=== PATIENT | male | born 1940 | race Caucasian/White ===

== ENCOUNTER 2017-04-04 17:59 | Emergency (ER) | payer BC ==
[~2017-04-04] VITALS: Ht 177.8 cm; Wt 115.9 kg
[~2017-04-04 17:59] MED LIST: ALEVE220 MG PO; ALLOPURINOL300 MG PO; ASPIRIN 32325 MG/TAB PO; ASPIRIN 81M81 MG/TA2 PO; CALCIUM + D 6001 TA1 PO; CALCIUM/VITAMIN1 CAP PO; COREG6.25 MG PO; CRESTOR20 MG PO; CRESTOR40 MG PO; FISH OIL1000 MG PO; GAS RELIEF125 MG PO; HYDROCODONE/APAP PO; LISINOPRIL40 MG PO; LOPRESSOR50 MG PO; MULTIPLE VITAMI1 CAP PO; NITROSTAT0.4 MG/TAB SL; NORCO PO; PERCOCET 325 MG1 TA2 PO; PLAVIX 75MG TAB75 MG PO; PROTONIX 40MG T40 MG PO; TOPROL XL100 MG PO; TYLENOL EXTRA500 M1 PO; ULTRAM 50MG TAB50 MG PO; VITAMIN D32000 IU PO; ZOCOR80 MG PO
[2017-04-04 18:05] VITALS: BP 132/67; TEMP 97
[2017-04-04] MEDS ORDERED: PROSCAR 5MG5 MG PO (19:10)
[2017-04-04] MEDS ORDERED: CLINDAMYCIN150 MG PO (20:49)
[2017-04-04 20:55] VITALS: PULSE 76
== END 2017-04-04 21:05 | disposition home or self-care (01) ==
LOC: COL.ER 17:59
DX: S61.412A Laceration without foreign body of left hand, initial encounter (principal); I10 Essential (primary) hypertension; I25.2 Old myocardial infarction; M19.90 Unspecified osteoarthritis, unspecified site; Z23 Encounter for immunization; Z90.49 Acquired absence of other specified parts of digestive tract; Z98.890 Other specified postprocedural states; W29.0XXA Contact with powered kitchen appliance, initial encounter; Y92.009 Unspecified place in unspecified non-institutional (private) residence as the place of occurrence of the external cause

== ENCOUNTER 2019-09-22 17:25 | Emergency (ER) | payer BC ==
[~2019-09-22] VITALS: Ht 177.8 cm; Wt 106.8 kg
[~2019-09-22 17:25] MED LIST changes: +CLINDAMYCIN150 MG PO; +PROSCAR 5MG5 MG PO
[2019-09-22 17:34] VITALS: BP 173/74; TEMP 98.4
[2019-09-22 19:00] VITALS: PULSE 68
== END 2019-09-22 19:00 | disposition home or self-care (01) ==
LOC: COL.ER 17:25
DX: S70.01XA Contusion of right hip, initial encounter (principal); I25.10 Atherosclerotic heart disease of native coronary artery without angina pectoris; I10 Essential (primary) hypertension; E78.5 Hyperlipidemia, unspecified; Z79.82 Long term (current) use of aspirin; W01.0XXA Fall on same level from slipping, tripping and stumbling without subsequent striking against object, initial encounter; Y92.009 Unspecified place in unspecified non-institutional (private) residence as the place of occurrence of the external cause

== ENCOUNTER 2020-07-24 13:31 | Inpatient (IN) | payer BC, MEDICARE ==
[~2020-07-24] VITALS: Ht 177.8 cm; Wt 110.5 kg
[2020-07-24 15:17] VITALS: BP 134/71; PULSE 57; TEMP 98.1
[2020-07-24 16:42] LABS: BASO % 0.2 % (0.0-2.0); EOS % 0.5 % (0-4.0); GRAN # 5.7 (1.4-6.5); GRAN % 70.2 % (42.2-75.2); HEMATOCRIT 43.1 % (42.0-52.0); HEMOGLOBIN 14.2 g/dl (13.5-18.0); LYMPH # 1.5 (1.2-3.4); LYMPH % 18.8 % (20.0-51.0); MEAN CELL VOLUME 95 fl (80.0-100.0); MEAN CORPUSCULAR HEMOGLOBIN 31 pg (27.0-31.0); MEAN CORPUSCULAR HGB CONC 33 g/dl (33.0-37.0); MEAN PLATELET VOLUME 9.4 fl (7.4-10.4); MONO # 0.8 (0.1-0.6); MONO % 9.9 % (1.7-9.3); PLATELET COUNT 216 K/mm3 (130-400); RED BLOOD COUNT 4.56 M/mm3 (4.20-5.60); REDCELL DISTRIBUTION WIDTH-CV 13.4 % (11.5-14.5)
[2020-07-24 16:43] LABS: PROTHROMBIN TIME 11.1 SECONDS (9.7-12.8)
[2020-07-24 16:46] LABS: PARTIAL THROMBOPLASTIN TIME 34.3 SECONDS (26.0-37.0)
[2020-07-24 16:49] LABS: ALBUMIN 2.7 gm/dL (3.5-5.0); BILIRUBIN,TOTAL 0.4 mg/dL (0.0-1.0); CALCIUM 8.4 mg/dL (8.4-10.2); CREATININE, serum 4.1 (0.66-1.25); POTASSIUM 4.3 mmol/L (3.4-5.0); TOTAL PROTEIN 5.5 gm/dL (6.4-8.2)
[2020-07-24] MEDS ORDERED: CELEBREX 200MG200 MG PO (17:22)
[2020-07-24] MEDS ORDERED: BYDUREON PEN2 MG SQ (17:24)
[2020-07-24] MEDS ORDERED: FAXIGA PO (17:24)
[2020-07-24 18:20] LABS: COLLECTION METHOD CLEAN CATCH
[2020-07-24 18:29] LABS: MUCOUS Present /lpf; PH 6 (5-8); SQUAMOUS EPITHELIAL 0-2 /hpf; URINE APPEARANCE Hazy; URINE BACTERIA Rare /hpf; URINE BILIRUBIN Negative (NEGATIVE); URINE BLOOD Negative (NEGATIVE); URINE COLOR Yellow; URINE GLUCOSE 1+ (NEGATIVE); URINE KETONE Negative (NEGATIVE); URINE LEUKOCYTE ESTERASE Negative (NEGATIVE); URINE NITRATE Negative (NEGATIVE); URINE PROTEIN(semi-quant) 3+ (NEGATIVE); URINE UROBILINOGEN Negative (NEGATIVE)
--- NOTE | 2020-07-24 19:30 | NUR ---
Pt arrived to the floor this afternoon. Resting in bed, alert and oriented, assessments completed. Denies pain. IV started to R A/C, and LUE restrict bracelet placed. PT doing well, dr. Santizo to see him earlier. Bedside shift report given to nightshift nurs who will resume care.
[2020-07-24 19:31] VITALS: BP 146/51; PULSE 65; TEMP 98.3
[2020-07-24 19:57] LABS: URINE PROTEIN:CREAT RATIO 27.61 (0.00-0.14)
[2020-07-24 20:11] LABS: CREATININE, serum 3.99 (0.66-1.25); FRACTIONAL EXCRETION OF NA+ 1.2 %
[2020-07-24 23:34] VITALS: BP 135/62; PULSE 60; TEMP 98.6
[2020-07-25 03:30] VITALS: BP 146/69; PULSE 62; TEMP 98
--- NOTE | 2020-07-25 05:54 | NUR ---
Patient alert and oriented. Patient had a restful shift. Vital signs stable. Patient has left arm as restricted just in case at this time. Patient reported no dizziness or lightheadedness. Denies needs at this time.
[2020-07-25 08:35] LABS: BASO % 0.3 % (0.0-2.0); EOS % 0.3 % (0-4.0); GRAN # 4.7 (1.4-6.5); GRAN % 72.3 % (42.2-75.2); HEMATOCRIT 42.2 % (42.0-52.0); HEMOGLOBIN 13.9 g/dl (13.5-18.0); LYMPH % 15.1 % (20.0-51.0); MEAN CELL VOLUME 94 fl (80.0-100.0); MEAN CORPUSCULAR HEMOGLOBIN 31 pg (27.0-31.0); MEAN CORPUSCULAR HGB CONC 33 g/dl (33.0-37.0); MEAN PLATELET VOLUME 9.7 fl (7.4-10.4); MONO # 0.8 (0.1-0.6); MONO % 11.7 % (1.7-9.3); PLATELET COUNT 214 K/mm3 (130-400); RED BLOOD COUNT 4.48 M/mm3 (4.20-5.60); REDCELL DISTRIBUTION WIDTH-CV 13.4 % (11.5-14.5)
[2020-07-25 08:49] LABS: ALBUMIN 2.5 gm/dL (3.5-5.0); CALCIUM 8.1 mg/dL (8.4-10.2); CREATININE, serum 3.7 (0.66-1.25); PHOSPHOROUS 5.8 mg/dL (2.5-4.5); POTASSIUM 3.9 mmol/L (3.4-5.0)
[2020-07-25 10:01] VITALS: BP 155/74; PULSE 65; TEMP 98.3
--- NOTE | 2020-07-25 10:39 | NUR ---
Assessment charted. Pt resting in bed, denies pibentley, has spoken with nephrology today and feeling optimistic about plan of care. Denies pain. INT to R A/C. Up ad constanza. Denies needs, will continue to monitor.
[2020-07-25 11:51] VITALS: BP 148/71; PULSE 62; TEMP 98.3
--- NOTE | 2020-07-25 16:07 | NUR ---
Plan: Plan to return home with Jaleesa . Assessment: SW met with patient about DC plan. Patient reports that his secondary contact is [facility] Shil[facility] . PCP is Dr. Izquierdo. Patient reports that he uses [facility] for medications. Denies having any DME. Denies needing any additonal services. will help with transport. ACtion: Educated on resources, will continue to follow.
[2020-07-25 16:54] VITALS: BP 162/59; PULSE 66; TEMP 98.5
--- NOTE | 2020-07-25 17:51 | NUR ---
Pt has done well over shift. Resting in bed, up ad constanza with , ambulated around hallways and did well, sitting in recliner. 24 hour urine initiated, pt aware of plan of care. Denies needs or pain, will give bedside shift report to nightshift nurse who will resume care.
[2020-07-25 19:20] VITALS: BP 160/59; PULSE 63; TEMP 98.3
--- NOTE | 2020-07-25 20:30 | NUR ---
Initial shift assessment done- 24 hr urine in progress, voiding small amounts at a time. Up in room on own- steady on feet. Denies pain.
[2020-07-25 23:27] VITALS: BP 142/74; PULSE 63; TEMP 97.7
[2020-07-26 03:30] VITALS: BP 151/74; PULSE 65; TEMP 97.9
--- NOTE | 2020-07-26 05:57 | NUR ---
Quiet night- denies any pain . Voiding mónica urine- 24 hr urine in progress.
[2020-07-26 06:11] LABS: BASO % 0.4 % (0.0-2.0); EOS % 0.3 % (0-4.0); GRAN % 67.3 % (42.2-75.2); HEMATOCRIT 43.6 % (42.0-52.0); HEMOGLOBIN 14.4 g/dl (13.5-18.0); LYMPH # 1.5 (1.2-3.4); LYMPH % 20.5 % (20.0-51.0); MEAN CELL VOLUME 94 fl (80.0-100.0); MEAN CORPUSCULAR HEMOGLOBIN 31 pg (27.0-31.0); MEAN CORPUSCULAR HGB CONC 33 g/dl (33.0-37.0); MEAN PLATELET VOLUME 9.6 fl (7.4-10.4); MONO # 0.8 (0.1-0.6); MONO % 11.2 % (1.7-9.3); PLATELET COUNT 224 K/mm3 (130-400); RED BLOOD COUNT 4.66 M/mm3 (4.20-5.60); REDCELL DISTRIBUTION WIDTH-CV 13.3 % (11.5-14.5)
[2020-07-26 06:16] LABS: ALBUMIN 2.6 gm/dL (3.5-5.0); CALCIUM 8.7 mg/dL (8.4-10.2); CREATININE, serum 3.95 (0.66-1.25); PHOSPHOROUS 5.6 mg/dL (2.5-4.5)
[2020-07-26 07:36] VITALS: BP 170/76; PULSE 61; TEMP 97.4
--- NOTE | 2020-07-26 09:00 | NUR ---
Reviewed and checked students shift assessment, agree with the assessment completed by student.
[2020-07-26 11:35] VITALS: BP 150/66; PULSE 58; TEMP 97.4
--- NOTE | 2020-07-26 13:59 | NUR ---
Patient has been in a pleasant mood. Enjoys talking about his past and all of the things he has done in life. Discussed patient's condition and provided some extra education on renal failure. Also discussed process of kidney biopsies. Encouraged pt. to keep his SCDs on, but patient has been taking them off to get up and walk around. Pt. finds SCDs to be unfcomfortable, reinforced the importance of them for DVT prevention. Walked with pt. around the unit.
[2020-07-26 16:12] LABS: URINE TOTAL VOLUME 1900 mL
[2020-07-26 16:21] VITALS: BP 154/73; PULSE 64; TEMP 98.1
[2020-07-26 16:40] LABS: CREATININE, serum 3.97 (0.66-1.25)
[2020-07-26 17:00] LABS: URINE CREATININE CLEARANCE 18.5 mL/min (97-137)
--- NOTE | 2020-07-26 17:46 | NUR ---
Pt resting in the room, 24 hour collection completed and sent to the lab. Pt has no complaints other than the fluid restriction, educated Pt on the need / reasons for the restriction. VS have remained stable with no C/O pain.
[2020-07-26 19:54] VITALS: BP 152/67; PULSE 65; TEMP 98.5
--- NOTE | 2020-07-26 20:00 | NUR ---
Report received, assumed care for shift manager. Assessment complete. VS stable. A&Ox3. Denies pain/nausea/shortness of breath. VS stable-blood pressure slightly elevated. HS meds given. Right AC INT flushes without difficulty. Plan of care discussed for this shift to include HS meds/calling for needs/possible kidney bx tomorrow. Verbalizes understanding/denies questions/concerns. Call light in reach. Will monitor.
[2020-07-27] VITALS (7 sets, daily range): BP systolic 140–164; BP diastolic 63–88; PULSE 60–69; TEMP 97.3–98.6
[2020-07-27 07:28] LABS: BASO % 0.3 % (0.0-2.0); EOS % 0.3 % (0-4.0); GRAN # 5.3 (1.4-6.5); GRAN % 67.5 % (42.2-75.2); HEMATOCRIT 43.6 % (42.0-52.0); HEMOGLOBIN 14.4 g/dl (13.5-18.0); LYMPH # 1.7 (1.2-3.4); LYMPH % 21.2 % (20.0-51.0); MEAN CELL VOLUME 94 fl (80.0-100.0); MEAN CORPUSCULAR HEMOGLOBIN 31 pg (27.0-31.0); MEAN CORPUSCULAR HGB CONC 33 g/dl (33.0-37.0); MEAN PLATELET VOLUME 9.7 fl (7.4-10.4); MONO # 0.8 (0.1-0.6); MONO % 10.3 % (1.7-9.3); PLATELET COUNT 226 K/mm3 (130-400); RED BLOOD COUNT 4.63 M/mm3 (4.20-5.60); REDCELL DISTRIBUTION WIDTH-CV 13.6 % (11.5-14.5)
[2020-07-27 07:48] LABS: ALBUMIN 2.7 gm/dL (3.5-5.0); CALCIUM 8.8 mg/dL (8.4-10.2); CREATININE, serum 4.07 (0.66-1.25); PHOSPHOROUS 4.7 mg/dL (2.5-4.5); POTASSIUM 3.7 mmol/L (3.4-5.0)
--- NOTE | 2020-07-27 11:54 | NUR ---
First visit from the sap portal consultant. No needs right now.
--- NOTE | 2020-07-27 18:33 | NUR ---
Pt has been resting in the room, no C/O pain today, VS have remained stable.
--- NOTE | 2020-07-27 19:05 | NUR ---
Received report from Oscar. Seen patient awake, lying in bed. Instructed him to be NPO by midnight. He verbalizes understanding. He said as well that he haven't received his dinner yet. Oscar called dietary to bring him his dinner as he will have NPO by midnight and not at this time.
--- NOTE | 2020-07-27 22:00 | NUR ---
Informed patient of new orders of Dr. Santizo regarding TB skin test. Informed him that the warehouse assistant will go in his room in a bit to do the skin test. Updated him as well of the lab works to be done in the morning and reminded him again about the NPO on midnight.
--- NOTE | 2020-07-27 22:44 | NUR ---
supervisor printing and stamping Dayna did the TB skin test.
[2020-07-28] VITALS (15 sets, daily range): BP systolic 122–192; BP diastolic 63–105; PULSE 59–88; TEMP 97.5–98.2
--- NOTE | 2020-07-28 06:20 | NUR ---
Consent signed by the patient. Maintained on NPO. Denies pain.
--- NOTE | 2020-07-28 07:03 | NUR ---
bedside shift report received from RAMANA Tejada
--- NOTE | 2020-07-28 08:32 | NUR ---
Dr Santizo notified of BP and order received, hydralazine 50mg po was given now, radiology nurse here to take patient for procedure, full assessment completed, see interventions for further info
--- NOTE | 2020-07-28 08:45 | NUR ---
pt to CT scanner via bed, monitoring applied. B/P elevated to 182/91, reported to Dr Daniels, will con't to monitor, pt recieved apresoline 50mg po at 0825 by floor nurse.
--- NOTE | 2020-07-28 08:55 | NUR ---
procedure not started, setting up, call to Pathologist by lab
[2020-07-28 09:01] LABS: BASO % 0.4 % (0.0-2.0); EOS % 0.3 % (0-4.0); GRAN % 65.3 % (42.2-75.2); HEMATOCRIT 43.7 % (42.0-52.0); HEMOGLOBIN 14.6 g/dl (13.5-18.0); LYMPH # 1.9 (1.2-3.4); LYMPH % 24.4 % (20.0-51.0); MEAN CELL VOLUME 95 fl (80.0-100.0); MEAN CORPUSCULAR HEMOGLOBIN 32 pg (27.0-31.0); MEAN CORPUSCULAR HGB CONC 33 g/dl (33.0-37.0); MEAN PLATELET VOLUME 9.9 fl (7.4-10.4); MONO # 0.7 (0.1-0.6); MONO % 9.3 % (1.7-9.3); PLATELET COUNT 252 K/mm3 (130-400); RED BLOOD COUNT 4.61 M/mm3 (4.20-5.60); REDCELL DISTRIBUTION WIDTH-CV 13.6 % (11.5-14.5)
[2020-07-28 09:16] LABS: PROTHROMBIN TIME 11.4 SECONDS (9.7-12.8)
[2020-07-28 09:18] LABS: PARTIAL THROMBOPLASTIN TIME 34.2 SECONDS (26.0-37.0)
[2020-07-28 09:26] LABS: ALBUMIN 2.7 gm/dL (3.5-5.0); CALCIUM 8.8 mg/dL (8.4-10.2); CREATININE, serum 3.92 (0.66-1.25); PHOSPHOROUS 4.3 mg/dL (2.5-4.5); POTASSIUM 3.7 mmol/L (3.4-5.0)
--- NOTE | 2020-07-28 09:30 | NUR ---
first of several specimans given to Pathologist in adamaris dish with saline.
--- NOTE | 2020-07-28 09:40 | NUR ---
procedure finished, bandaid over right middle back. Pt transferred to bed, taken back to 317, has no c/o. Report given to Nelda BOLES
--- NOTE | 2020-07-28 10:03 | NUR ---
returned to room per bed resting on back, at bedside
--- NOTE | 2020-07-28 11:05 | NUR ---
remains resting in bed, Dr Santizo in to see patient
--- NOTE | 2020-07-28 11:30 | NUR ---
voided and urine is clear light mónica
--- NOTE | 2020-07-28 13:05 | NUR ---
appears to be sleeping, resp quiet and easy, remains at bedside
--- NOTE | 2020-07-28 13:21 | NUR ---
calls nurse and needs to have bowel movement, requesting to get up to bathroom but reminded him he could not get up yet, placed on bedpan
--- NOTE | 2020-07-28 14:00 | NUR ---
had bowel movement and CREAM SEPARATOR OPERATOR assisted him with cleaning,
--- NOTE | 2020-07-28 15:00 | NUR ---
appears to be dozing, awakens easily, declined any lunch, denies pain or needs, remains at bedside
--- NOTE | 2020-07-28 16:15 | NUR ---
continues to rest in bed and dose at intervals, denies pain or needs
--- NOTE | 2020-07-28 18:00 | NUR ---
continues to rest in bed, denies needs
--- NOTE | 2020-07-28 19:11 | NUR ---
bedside shift report given to RAMANA Guzman
--- NOTE | 2020-07-28 20:30 | NUR ---
Initial shift assessment done- denies pain,,bandaid to back dry and intact, voiding mónica colored urine--no requests, states should be going home tomorrow
[2020-07-28 21:28] LABS: C-ANCA 6 U/mL (0-99)
[2020-07-28 21:35] LABS: HEPATITIS B SURFACE ANTIBODY <2.0 (()); HEPATITIS B SURFACE ANTIGEN Negative (Negative); HEPATITIS C VIRUS ANTIBODY Negative (Negative)
[2020-07-29 00:02] VITALS: BP 173/77; PULSE 65; TEMP 98.1
[2020-07-29 04:03] VITALS: BP 143/64; PULSE 64; TEMP 98.1
--- NOTE | 2020-07-29 06:30 | NUR ---
Quiet night- no requests, VSS,PRN Apresoline given IV x1 - no bleeding noted in urine
[2020-07-29 07:19] LABS: BASO % 0.3 % (0.0-2.0); EOS % 0.4 % (0-4.0); GRAN # 5.6 (1.4-6.5); GRAN % 62.6 % (42.2-75.2); HEMATOCRIT 45.3 % (42.0-52.0); LYMPH # 2.4 (1.2-3.4); LYMPH % 26.4 % (20.0-51.0); MEAN CELL VOLUME 95 fl (80.0-100.0); MEAN CORPUSCULAR HEMOGLOBIN 31 pg (27.0-31.0); MEAN CORPUSCULAR HGB CONC 33 g/dl (33.0-37.0); MEAN PLATELET VOLUME 9.8 fl (7.4-10.4); MONO # 0.9 (0.1-0.6); MONO % 10.1 % (1.7-9.3); PLATELET COUNT 268 K/mm3 (130-400); RED BLOOD COUNT 4.79 M/mm3 (4.20-5.60); REDCELL DISTRIBUTION WIDTH-CV 13.7 % (11.5-14.5)
[2020-07-29 08:01] VITALS: BP 154/75; PULSE 62; TEMP 98.5
[2020-07-29 08:26] LABS: ALBUMIN 2.7 gm/dL (3.5-5.0); CALCIUM 8.9 mg/dL (8.4-10.2); CREATININE, serum 3.7 (0.66-1.25); PHOSPHOROUS 4.3 mg/dL (2.5-4.5); POTASSIUM 3.7 mmol/L (3.4-5.0)
[2020-07-29] MEDS ORDERED: APRESOLINE 25MG25 MG PO (10:46)
[2020-07-29] MEDS ORDERED: NORVASC2.5 MG PO (10:53)
[2020-07-29] MEDS ORDERED: LASIX 20MG TABL20 MG PO (11:04)
[2020-07-29 11:14] VITALS: BP 147/77; PULSE 67; TEMP 97.7
[2020-07-29] MEDS ORDERED: JANUVIA50 MG PO (11:18)
[2020-07-29] MEDS ORDERED: GLUCOTROL XL2.5 MG PO (11:18)
[2020-07-29 12:25] LABS: SJOGRENS SSB 8 U/mL (0-99)
--- NOTE | 2020-07-29 12:29 | NUR ---
PATIENT IS UP IN ROOM, INT REMOVED AND HE IS TAKING A SHOWER. DISCHARGE PAPERWORK COMPLETE. HAS HAD DIETARY EDUCATION GIVEN FROM DIETIAN AND NEPHROLOGY NURSE.
--- NOTE | 2020-07-29 13:25 | NUR ---
PATIENT DISCHARGED HOME AT 1245, AMBULATED TO PATIENT ENTRANCE WHERE A FRIEND PICKED HIM UP. PERSONAL BELONGINGS SENT WITH PATEIENT.
== END 2020-07-29 12:45 | disposition home or self-care (01) | DRG 684 ==
LOC: MEDICAL 13:31
PROVIDERS: Nurse Practitioner; ADMIT Internal Medicine Nephrology
PROC: 0TB13ZX Excision of Left Kidney, Percutaneous Approach, Diagnostic (ICD-10-PCS; principal; 2020-07-28)
DX: N17.9 Acute kidney failure, unspecified (principal); E66.9 Obesity, unspecified; E11.21 Type 2 diabetes mellitus with diabetic nephropathy; I10 Essential (primary) hypertension; I25.2 Old myocardial infarction; E78.5 Hyperlipidemia, unspecified; N40.0 Benign prostatic hyperplasia without lower urinary tract symptoms; M10.9 Gout, unspecified; Z95.5 Presence of coronary angioplasty implant and graft
CPT/HCPCS: J1644; J1815

== ENCOUNTER 2020-09-22 14:06 | Inpatient (IN) | payer BC, MEDICARE ==
[2020-09-22] VITALS (203 sets, daily range): BP systolic 54–108; BP diastolic 22–61; PULSE 106; TEMP 99.4; O2SAT 70–100
[~2020-09-22] VITALS: Ht 177.8 cm; Wt 101.8 kg
[~2020-09-22 14:06] MED LIST changes: +APRESOLINE 25MG25 MG PO; +BYDUREON PEN2 MG SQ; +CELEBREX 200MG200 MG PO; +FAXIGA PO; +GLUCOTROL XL2.5 MG PO; +JANUVIA50 MG PO; +LASIX 20MG TABL20 MG PO; +NORVASC2.5 MG PO
[2020-09-22 14:55] LABS: HEMATOCRIT 46.1 % (42.0-52.0); HEMOGLOBIN 15.1 g/dl (13.5-18.0); MEAN CELL VOLUME 93 fl (80.0-100.0); MEAN CORPUSCULAR HEMOGLOBIN 30 pg (27.0-31.0); MEAN CORPUSCULAR HGB CONC 33 g/dl (33.0-37.0); MEAN PLATELET VOLUME 10.7 fl (7.4-10.4); PLATELET COUNT 172 K/mm3 (130-400); RED BLOOD COUNT 4.96 M/mm3 (4.20-5.60); REDCELL DISTRIBUTION WIDTH-CV 13.6 % (11.5-14.5)
[2020-09-22 15:07] LABS: ALBUMIN 3.5 gm/dL (3.5-5.0); BILIRUBIN,TOTAL 0.8 mg/dL (0.0-1.0); C-REACTIVE PROTEIN 0.8 mg/dL (0.0-0.9); CALCIUM 9.5 mg/dL (8.4-10.2); CREATININE, serum 2.62 (0.66-1.25); POTASSIUM 4.8 mmol/L (3.4-5.0); TOTAL PROTEIN 5.9 gm/dL (6.4-8.2)
[2020-09-22 16:23] LABS: BAND 8 % (0-10); HYPOCHROMIA 1+; LYMPHOCYTE 11 % (20.0-51.0); NEUTROPHILS 76 % (42.0-75.2); PLATELET ESTIMATE NORMAL (NORMAL); TOXIC GRANULATION PRESENT
[2020-09-22 18:03] LABS: HEMATOCRIT 43.2 % (42.0-52.0); HEMOGLOBIN 14.4 g/dl (13.5-18.0); MEAN CELL VOLUME 91 fl (80.0-100.0); MEAN CORPUSCULAR HEMOGLOBIN 30 pg (27.0-31.0); MEAN CORPUSCULAR HGB CONC 33 g/dl (33.0-37.0); MEAN PLATELET VOLUME 10.8 fl (7.4-10.4); PLATELET COUNT 168 K/mm3 (130-400); RED BLOOD COUNT 4.73 M/mm3 (4.20-5.60); REDCELL DISTRIBUTION WIDTH-CV 13.5 % (11.5-14.5)
[2020-09-22 18:11] LABS: INR 1.1 (0.8-3.0); PROTHROMBIN TIME 12.2 SECONDS (9.7-12.8)
[2020-09-22 18:29] LABS: COLLECTION METHOD CLEAN CATCH
[2020-09-22 18:38] LABS: GRANULAR CAST >12 /lpf; MUCOUS Present /lpf; PH 5 (5-8); SQUAMOUS EPITHELIAL None Seen /hpf; URINE APPEARANCE Cloudy; URINE BACTERIA Rare /hpf; URINE BILIRUBIN Negative (NEGATIVE); URINE BLOOD 3+ (NEGATIVE); URINE COLOR Yellow; URINE GLUCOSE 3+ (NEGATIVE); URINE KETONE Negative (NEGATIVE); URINE LEUKOCYTE ESTERASE Negative (NEGATIVE); URINE NITRATE Negative (NEGATIVE); URINE PROTEIN(semi-quant) 2+ (NEGATIVE); URINE RBC >50 /hpf; URINE UROBILINOGEN Negative (NEGATIVE)
[2020-09-22] MEDS ORDERED: ASPIRIN 81M81 MG/TA2 PO (19:00)
[2020-09-22] MEDS ORDERED: BYDUREON PEN2 MG SQ (19:01)
[2020-09-22] MEDS ORDERED: FAXIGA (19:02)
--- NOTE | 2020-09-22 19:35 | NUR ---
Received report from ED nurse
--- NOTE | 2020-09-22 20:00 | NUR ---
Patient arrives to ICU room 6 via ED stretcher. Patient is A&Ox4; he denies any pain or discomfort at this time. Patient arrives to ICU with a right upper arm PICC, receiving levophed at 0.35 mcg/kg/min or 128 mL/hr to the red port, and vasopressin at 0.04 units/min or 12.1 mL/hr to purple. Patient is on room air and tolerating well. Patient's respirations are regular and unlabored. He denies feeling any shortness of breath. Initial vital signs are within normal limits. Patient arrives with an 18F zavaleta catheter, draining tea-colored cloudy urine. Patient states the zavaleta is uncomfortable and wishes for it to be removed. Dr. Santiago notified of patient's arrival. Received orders to discontinue vasopressin, titrating levophed for a MAP of 65 or better. Due to large infusing volumes of levophed, received orders for double concentration levophed. Also received orders for GI consult for Dr. Dominguez, who Dr. Santiago has already notified. Accuchecks to be changed from every 4 to every 6 hours. To keep patient NPO after midnight for possible EGD tomorrow; he can have water and ice chips prior to midnight. Zavaleta catheter can be removed per patient request. To infuse one unit of PRBCs following 2100 lab draw. Will continue to monitor closely.
[2020-09-22 21:22] LABS: HEMOGLOBIN 14.4 g/dl (13.5-18.0); MEAN CELL VOLUME 91 fl (80.0-100.0); MEAN CORPUSCULAR HEMOGLOBIN 31 pg (27.0-31.0); MEAN CORPUSCULAR HGB CONC 34 g/dl (33.0-37.0); MEAN PLATELET VOLUME 11.1 fl (7.4-10.4); PLATELET COUNT 182 K/mm3 (130-400); RED BLOOD COUNT 4.72 M/mm3 (4.20-5.60); REDCELL DISTRIBUTION WIDTH-CV 13.5 % (11.5-14.5)
--- NOTE | 2020-09-22 21:30 | NUR ---
Dr. Santiago at patient bedside at this time. Notified him of critical WBC.
[2020-09-22 23:26] LABS: TROPONIN-I 0.064 ng/mL (0.000-0.035)
[2020-09-22 23:37] LABS: URINE PROTEIN:CREAT RATIO 1.35 (0.00-0.14)
--- NOTE | 2020-09-22 23:40 | NUR ---
Attempted to notify Dr. Santiago of patient's critical troponin with no answer. Will try again in 10-15 minutes.
[2020-09-22 23:43] LABS: TSH w REFLEX 1.01 uIU/mL (0.465-4.680)
[2020-09-23] VITALS (1196 sets, daily range): BP systolic 09–140; BP diastolic 39–85; PULSE 59–106; TEMP 97.5–99.5; O2SAT 45–100
--- NOTE | 2020-09-23 00:43 | NUR ---
Vancomycin Initial Dosing Pharmacy Note Ordering provider: Gelacio Hung MD Indication/duration: Empiric for Sepsis Relevant comorbidities: GI bleed LABS: WBC = 21.5, SCr= 2.62 Recommendation: If vanco continued, will order trough and follow levels. Loading dose: 2 grams Maintenance dose: 1 gram every 24 hours Trough goal: 10-15 ug/mL
--- NOTE | 2020-09-23 01:04 | NUR ---
Notified Dr. Santiago of critical troponin. Received orders for cardiology consult, to be notified in the AM. To trend troponins with the next being drawn at 0200. To redraw troponin with AM labs if 0200 result is upward trending. Received orders for SCDs for VTE prophylaxis. Also notified Dr. Santiago that ordered antibiotics would be administered late due to blood products infusing at this time.
--- NOTE | 2020-09-23 05:35 | NUR ---
Notified JACOBO of patient's blood glucose of 300. Received orders from Dr. Galvez to change accuchecks to every four hours and to initiate patient on a mid-sliding scale. Will continue to monitor.
[2020-09-23 05:47] LABS: HEMATOCRIT 43.8 % (42.0-52.0); HEMOGLOBIN 14.8 g/dl (13.5-18.0); MEAN CELL VOLUME 91 fl (80.0-100.0); MEAN CORPUSCULAR HEMOGLOBIN 31 pg (27.0-31.0); MEAN CORPUSCULAR HGB CONC 34 g/dl (33.0-37.0); MEAN PLATELET VOLUME 11.2 fl (7.4-10.4); PLATELET COUNT 155 K/mm3 (130-400); RED BLOOD COUNT 4.81 M/mm3 (4.20-5.60); REDCELL DISTRIBUTION WIDTH-CV 13.7 % (11.5-14.5)
[2020-09-23 05:57] LABS: CALCIUM 8.9 mg/dL (8.4-10.2); CREATININE, serum 2.08 (0.66-1.25)
[2020-09-23 05:58] LABS: POTASSIUM 5.8 mmol/L (3.4-5.0)
[2020-09-23 06:05] LABS: BAND 16 % (0-10); LYMPHOCYTE 4 % (20.0-51.0); NEUTROPHILS 73 % (42.0-75.2); NUCLEATED RED BLOOD CELL 1 (0-6); PLATELET ESTIMATE NORMAL (NORMAL)
--- NOTE | 2020-09-23 06:06 | NUR ---
Notified JACOBO of patient's critical potassium. No new orders received at this time.
--- NOTE | 2020-09-23 06:45 | NUR ---
Notified by railway signal technicianChantal, that patient's T wave suddenly appeared elevated. EKG ordered and RT notified. Will continue to monitor.
--- NOTE | 2020-09-23 07:30 | NUR ---
Report given to Benjamin RN, and RAMANA Enriquez.
[2020-09-23 07:42] LABS: PATHOLOGY DIFF REVIEW OK +
--- NOTE | 2020-09-23 07:45 | NUR ---
Received report from RAMANA Mckinnon. Patient resting in room. All questions regarding patient and medication verified. Pumps verified.
--- NOTE | 2020-09-23 08:44 | NUR ---
Received orders from [facility] regarding patients potassium level of 5.8. Adminsitering 10Units of Insulin and Dextrose 50% IV push.
--- NOTE | 2020-09-23 09:20 | NUR ---
The patient is in isolation. TOMA attempted to contact the patient's room phone to complete intake. He did not answer. TOMA then contacted the patient's , Jaleesa (ph#[phone]), to complete intake. The patient lives in [place] with his . Jaleesa states that their 25 year-old grandson lives in their basement. She states that they also rent out their basement and another gentleman that is around 25 years-old is living down their too. Jaleesa reports that the patient is independent with ADLs and that he has a cane available to him, if needed. The patient's PCP is Dr. Iam Lamb and he receives his medications from [facility]. Jaleesa reports no difficulties obtaining his meds. The patient's DPOA-HC is in EMR and it designates his and the alternate is his daughter, Shilpa Rodriguez (ph#[phone]). Jaleesa reports no concerns at this time about the patient returning home with her upon discharge. TOMA to continue to follow.
--- NOTE | 2020-09-23 11:05 | NUR ---
First visit from the senior software engineer analytics. Chaplain nuñez for patient outside of door.
[2020-09-23 12:28] LABS: MAGNESIUM 1.9 mg/dL (1.6-2.3); PHOSPHOROUS 2.7 mg/dL (2.5-4.5); POTASSIUM 4.8 mmol/L (3.4-5.0)
--- NOTE | 2020-09-23 12:30 | NUR ---
PATIENT VOICED FRUSTRATION AND CONCERNS REGARDING HEART CATH TO NURSE. PATIENT STATED HE DID NOT WANT THE HEART CATH PERFORMED HERE AT THE HOSPITAL AND STATED HE WANTED TRANSFERED TO [facility] WHERE HIS PRIMARY SPECTROGRAPH OPERATOR IS AT. PATIENT STATED HE WANTED TO TALK TO THE DOCTORS IN CHARGE OF HIS CARE. NURSE NOTIFIED DR. TORIBIO REGARDING PATIENTS CONCERNS. DOCTOR CAME TO TALK TO PATIENT AND EXPLAINED THE SITUATION. PATIENT WAS OKAY WITH RECEIVING CARE UNTIL TRANSFERRED BUT STATED HE WILL NOT HAVE A HEART CATH PROCEDURE.
--- NOTE | 2020-09-23 12:45 | NUR ---
SPOKE WITH PATIENTS REGARDING COURSE OF TREATMENT AND CARE RECEIVED. STATED SHE WAS THANKFUL FOR STAFF TAKING CARE OF BUT WANTED TO START THE PROCESS OF GETTING PATIENT TRANSFERED TO [facility] WHERE PATIENTS PRIMARY SERVICE ORDER TAKER IS AT. NURSE STATED THAT THE TRANSFER PROCESS MAY BE DIFFICULT D/T HOSPITALS BEING FULL AND OVERWHELMED WITH PATIENT CENSUS AND THAT THE PROCESS MAY TAKE UP TO SEVERAL DAYS. WAS UNDERSTANDING OF SITUATION AND EXPRESSED HER WISHES AND STATED SHE WAS OKAY WITH THE PROCESS TAKING TIME BUT WANTED TO GO AHEAD AND GET STARTED ON THE TRANSFER. NURSE RELAYED INFORMATION TO NURSE QUALITY SYSTEMS ENGINEER.
--- NOTE | 2020-09-23 13:55 | NUR ---
PATIENT LEVOPHED STOPPED AT 1306. BP REMAIN WITHIN NORMAL LIMITS AND TRENDING WITHIN PARAMETERS TO STOP LEVOPHED. WILL CONTINUE TO MONITOR.
--- NOTE | 2020-09-23 14:00 | NUR ---
Spoke sosa Lazcano, pt's on the phone as a follow up to our previous conversations. She has since spoken with both Dr. Hung and Dr. Santizo. She understands the plan of care. We are going to hold off on doing the EDG today. She is going to think about doing the stress test for cardiology clearance maybe tomorrow. But she would also like us to attempt to transfer Santos to [facility] where his primary banquet stewardess is located. She understands that this transfer might be difficult to acheive due to the current state of bed availablity. We will attempt to accomidate that request. All her questions were answered.
--- NOTE | 2020-09-23 19:40 | NUR ---
Report given to Oscar BOLES and care transfered.
[2020-09-24] VITALS (608 sets, daily range): BP systolic 97–153; BP diastolic 62–88; PULSE 64–89; TEMP 98–98.7; O2SAT 56–100
[2020-09-24 05:49] LABS: MEAN CELL VOLUME 93 fl (80.0-100.0); MEAN CORPUSCULAR HGB CONC 33 g/dl (33.0-37.0); MEAN PLATELET VOLUME 10.8 fl (7.4-10.4); PLATELET COUNT 87 K/mm3 (130-400); RED BLOOD COUNT 3.66 M/mm3 (4.20-5.60); REDCELL DISTRIBUTION WIDTH-CV 14.1 % (11.5-14.5)
[2020-09-24 05:50] LABS: HEMATOCRIT 34.2 % (42.0-52.0); HEMOGLOBIN 11.3 g/dl (13.5-18.0); MEAN CORPUSCULAR HEMOGLOBIN 31 pg (27.0-31.0)
[2020-09-24 06:02] LABS: ALBUMIN 2.4 gm/dL (3.5-5.0); BILIRUBIN,TOTAL 0.7 mg/dL (0.0-1.0); CALCIUM 8.7 mg/dL (8.4-10.2); CREATININE, serum 1.53 (0.66-1.25); MAGNESIUM 1.6 mg/dL (1.6-2.3); POTASSIUM 4.5 mmol/L (3.4-5.0); TOTAL PROTEIN 4.6 gm/dL (6.4-8.2)
[2020-09-24 07:25] LABS: BAND 7 % (0-10); HYPOCHROMIA 1+; LYMPHOCYTE 9 % (20.0-51.0); NEUTROPHILS 75 % (42.0-75.2); PLATELET ESTIMATE DECREASED (NORMAL)
--- NOTE | 2020-09-24 11:25 | NUR ---
TOMA asked the hospitalist for PT/OT to be ordered. The hospitalist will order PT/OT once the patient's COVID results are in. SW to continue to follow.
--- NOTE | 2020-09-24 14:54 | NUR ---
Gave report to RAMANA Gomez. patient going to room 307
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
--- NOTE | 2020-09-24 20:00 | NUR ---
PATIENT IS A&O. VSS WITH TELE INPLACE. PATIENT HAS SIGNIFICANT CARDIAC HX. DENIES CHEST PAIN, SOA OR ANY OTHER COMPLAINTS AT THIS TIME. PATIENT HAVING GREEN MUCUS STOOL, NO BLOOD NOTED REPORTED BY DAY SHIFT. HGB IS 11.3. ABD IS ROUND, SOFT AND WITH POSITIVE BOWL SOUNDS. NO C/O N/V. IV FLUIDS INFUSING INTO RIGHT UPPER ARM PICC. HEAD TO TOE ASSESSMENT COMPLETE. PATIENT INDEPENDENT IN ROOM. EVENING MEDS GIVEN. PATIENT ON PRECAUTIONS FOR PENDING COVID TEST. NO OTHER NEEDS. CALL LIGHT IN REACH. =
[2020-09-25] VITALS (10 sets, daily range): BP systolic 130–144; BP diastolic 61–87; PULSE 52–90; TEMP 97.3–97.7
--- NOTE | 2020-09-25 01:22 | NUR ---
TELE CALLED REPORTING PATIENT APPEARS TO BE IN A-FLUTTER. UPON ENTERING THE ROOM PATIENT DENIES CHEST PAIN, FLUTTER FEELING OR SOA. VSS. CALLED RT FOR A STAT EKG.
--- NOTE | 2020-09-25 01:33 | NUR ---
RT AT BEDSIDE
--- NOTE | 2020-09-25 09:51 | NUR ---
Pt assessment complete. Pt upset as he feels he has been left in the dark about what is going on. Unaware that he will be having an EGD, verified with Endo. POC discussed with patient. Dr. Esteban in to see patient at this time. IVF infusing at this time. Will continue to monitor.
[2020-09-25 12:22] LABS: HEMOGLOBIN 11.6 g/dl (13.5-18.0); MEAN CELL VOLUME 91 fl (80.0-100.0); MEAN CORPUSCULAR HEMOGLOBIN 31 pg (27.0-31.0); MEAN CORPUSCULAR HGB CONC 34 g/dl (33.0-37.0); MEAN PLATELET VOLUME 10.7 fl (7.4-10.4); PLATELET COUNT 89 K/mm3 (130-400); RED BLOOD COUNT 3.74 M/mm3 (4.20-5.60); REDCELL DISTRIBUTION WIDTH-CV 13.7 % (11.5-14.5)
[2020-09-25 12:26] LABS: HEMATOCRIT 34.1 % (42.0-52.0)
[2020-09-25 12:37] LABS: ALBUMIN 2.6 gm/dL (3.5-5.0); BILIRUBIN,TOTAL 0.7 mg/dL (0.0-1.0); CALCIUM 8.4 mg/dL (8.4-10.2); CREATININE, serum 1.34 (0.66-1.25); MAGNESIUM 1.5 mg/dL (1.6-2.3); POTASSIUM 4.2 mmol/L (3.4-5.0); TOTAL PROTEIN 4.9 gm/dL (6.4-8.2)
[2020-09-25 12:38] LABS: BAND 12 % (0-10); LYMPHOCYTE 5 % (20.0-51.0); NEUTROPHILS 79 % (42.0-75.2); PLATELET ESTIMATE DECREASED (NORMAL)
--- NOTE | 2020-09-25 13:24 | NUR ---
Pt left for EGD at this time.
--- NOTE | 2020-09-25 14:20 | NUR ---
Pt discharged to home, discussed discharge packet with Pt, answered questions. Escorted Pt to entrance, Pt left with family via private auto.
[2020-09-25 17:37] LABS: HEMOGLOBIN 11.6 g/dl (13.5-18.0)
[2020-09-25 17:39] LABS: HEMATOCRIT 34.3 % (42.0-52.0)
--- NOTE | 2020-09-25 18:17 | NUR ---
Pt had EGD today, recovered well. Tolerating clear liquids without issues. No pain. COVID repeat negative, patient moved to room 359. Amiodarone bolus administered by Housekeeping Associate Shu. Pt tolerated this without any issues, to receive first PO dose tonight. Pt resting comfortably at this time. Call light within reach.
[2020-09-26 00:10] VITALS: BP 123/67; PULSE 55; TEMP 97.9
--- NOTE | 2020-09-26 03:37 | NUR ---
Tele called, patient converted from a-flutter to sinus julianna.
[2020-09-26 04:25] VITALS: BP 110/63; PULSE 56; TEMP 97.6
--- NOTE | 2020-09-26 06:50 | NUR ---
bedside shift report received from RAMANA Ugarte
[2020-09-26 08:23] VITALS: BP 126/67; PULSE 56; TEMP 98.3
--- NOTE | 2020-09-26 09:15 | NUR ---
sitting up in bed and had breakfast, full assessment completed, see interventions for further info, denies needs at this time
[2020-09-26 10:39] LABS: HEMOGLOBIN 11.3 g/dl (13.5-18.0); MEAN CELL VOLUME 92 fl (80.0-100.0); MEAN CORPUSCULAR HEMOGLOBIN 31 pg (27.0-31.0); MEAN CORPUSCULAR HGB CONC 33 g/dl (33.0-37.0); MEAN PLATELET VOLUME 10.7 fl (7.4-10.4); PLATELET COUNT 97 K/mm3 (130-400); RED BLOOD COUNT 3.71 M/mm3 (4.20-5.60); REDCELL DISTRIBUTION WIDTH-CV 13.8 % (11.5-14.5)
[2020-09-26 10:42] LABS: HEMATOCRIT 34.2 % (42.0-52.0)
[2020-09-26 10:49] LABS: CALCIUM 8.2 mg/dL (8.4-10.2); CREATININE, serum 1.26 (0.66-1.25)
--- NOTE | 2020-09-26 11:20 | NUR ---
resting in bed reading a book, telemetry on
[2020-09-26] MEDS ORDERED: PREDNISONE10 MG PO ×2 (11:24)
[2020-09-26 11:42] LABS: LYMPHOCYTE 40 % (20.0-51.0); NEUTROPHILS 57 % (42.0-75.2); PLATELET ESTIMATE NORMAL (NORMAL)
[2020-09-26] MEDS ORDERED: ELIQUIS 5MG PO (12:03)
[2020-09-26] MEDS ORDERED: PACERONE400 MG PO (12:05)
--- NOTE | 2020-09-26 12:13 | NUR ---
ambulating in sebastian with physical therapy
[2020-09-26 12:38] VITALS: BP 147/66; PULSE 60; TEMP 97.7
[2020-09-26] MEDS ORDERED: PREDNISONE20 MG (12:40)
--- NOTE | 2020-09-26 13:10 | NUR ---
bedside report given to RAMANA Moore
--- NOTE | 2020-09-26 14:55 | NUR ---
Pt discharged to home, discussed discharge instructions with Pt and spouse, answered questions. Escorted Pt to entrance, assisted in to vehicle, Pt left with spouse via private transportation.
== END 2020-09-26 14:55 | disposition home or self-care (01) | DRG 377 ==
LOC: COL.ER 14:06 → ICU 18:42 → MEDICAL 18:42
PROVIDERS: Family Medicine; Internal Medicine Nephrology; Internal Medicine Pulmonary Disease; Student in an Organized Health Care Education/Training Program; ADMIT Internal Medicine
PROC: 02HV33Z Insertion of Infusion Device into Superior Vena Cava, Percutaneous Approach (ICD-10-PCS; principal; 2020-09-22)
PROC: 0DB38ZX Excision of Lower Esophagus, Via Natural or Artificial Opening Endoscopic, Diagnostic (ICD-10-PCS; 2020-09-25)
PROC: 0DB78ZX Excision of Stomach, Pylorus, Via Natural or Artificial Opening Endoscopic, Diagnostic (ICD-10-PCS; 2020-09-25)
PROC: 0DB78ZX Excision of Stomach, Pylorus, Via Natural or Artificial Opening Endoscopic, Diagnostic (ICD-10-PCS; 2020-09-25)
DX: K29.31 Chronic superficial gastritis with bleeding (principal); R57.1 Hypovolemic shock; I21.A1 Myocardial infarction type 2; I48.92 Unspecified atrial flutter; E87.1 Hypo-osmolality and hyponatremia; N17.9 Acute kidney failure, unspecified; E87.2 Acidosis; N04.9 Nephrotic syndrome with unspecified morphologic changes; Z20.828 Contact with and (suspected) exposure to other viral communicable diseases; I12.9 Hypertensive chronic kidney disease with stage 1 through stage 4 chronic kidney disease, or unspecified chronic kidney disease; N18.30 Chronic kidney disease, stage 3 unspecified; K57.11 Diverticulosis of small intestine without perforation or abscess with bleeding; E11.22 Type 2 diabetes mellitus with diabetic chronic kidney disease; E11.21 Type 2 diabetes mellitus with diabetic nephropathy; E11.65 Type 2 diabetes mellitus with hyperglycemia; I08.1 Rheumatic disorders of both mitral and tricuspid valves; K44.9 Diaphragmatic hernia without obstruction or gangrene; K31.7 Polyp of stomach and duodenum; E87.5 Hyperkalemia; I25.10 Atherosclerotic heart disease of native coronary artery without angina pectoris; D50.0 Iron deficiency anemia secondary to blood loss (chronic); N40.0 Benign prostatic hyperplasia without lower urinary tract symptoms; S80.212A Abrasion, left knee, initial encounter; X58.XXXA Exposure to other specified factors, initial encounter; Z68.30 Body mass index [BMI] 30.0-30.9, adult; E66.9 Obesity, unspecified; M10.9 Gout, unspecified; R19.7 Diarrhea, unspecified; E78.5 Hyperlipidemia, unspecified; Z79.82 Long term (current) use of aspirin; Z79.84 Long term (current) use of oral hypoglycemic drugs; Z79.52 Long term (current) use of systemic steroids; Z95.5 Presence of coronary angioplasty implant and graft; Z88.1 Allergy status to other antibiotic agents; Z86.73 Personal history of transient ischemic attack (TIA), and cerebral infarction without residual deficits
CPT/HCPCS: 99223-AI; 99233-AI; C1751; C9113; J0282; J0610; J0692; J1720; J1815; J2405; J2543; J2704; J3010; J3370; J7030; J7050; J7060; J7120; J7512; P9016

== ENCOUNTER 2023-02-25 18:30 | Emergency (ER) | payer BC ==
[~2023-02-25] VITALS: Ht 170.2 cm; Wt 100.0 kg
[~2023-02-25 18:30] MED LIST changes: +ELIQUIS 5MG PO; +FAXIGA; +PACERONE400 MG PO; +PREDNISONE10 MG PO; +PREDNISONE20 MG
[2023-02-25 19:00] LABS: BASO % 0.1 % (0.0-2.0); GRAN % 71.6 % (42.2-75.2); HEMATOCRIT 50.5 % (42.0-52.0); HEMOGLOBIN 16.9 g/dl (13.5-18.0); LYMPH # 2.1 K/mm3 (1.2-3.4); LYMPH % 18.9 % (20.0-51.0); MEAN CELL VOLUME 93 fl (80.0-100.0); MEAN CORPUSCULAR HEMOGLOBIN 31 pg (27-31); MEAN CORPUSCULAR HGB CONC 34 g/dl (33.0-37.0); MEAN PLATELET VOLUME 9.6 fl (7.4-10.4); MONO % 8.9 % (1.7-9.3); PLATELET COUNT 229 K/mm3 (130-400); RED BLOOD COUNT 5.43 M/mm3 (4.20-5.60)
[2023-02-25 19:37] LABS: ALBUMIN 3.9 gm/dL (3.4-4.8); BILIRUBIN,TOTAL 0.5 mg/dL (0.2-1.2); CALCIUM 9.5 mg/dL (8.4-10.2); CREATININE, serum 0.95 mg/dL (0.72-1.25); POTASSIUM 4.3 mmol/L (3.5-4.5); TOTAL PROTEIN 6.9 gm/dL (6.2-8.1)
[2023-02-25 21:24] VITALS: BP 124/72; PULSE 64; TEMP 97.4
== END 2023-02-25 21:24 | disposition home or self-care (01) ==
LOC: COL.ER 18:30
PROVIDERS: Family Medicine
DX: S20.211A Contusion of right front wall of thorax, initial encounter (principal); W01.0XXA Fall on same level from slipping, tripping and stumbling without subsequent striking against object, initial encounter
CPT/HCPCS: J3010; J7120; Q9967

== ENCOUNTER → 2024-07-09 | Outpatient (CLI) | payer BC | LOC: COL.RAD 15:28 | DX: N45.3 Epididymo-orchitis (principal) ==